=== PATIENT | male | born 1965 | race Two or more races ===

== ENCOUNTER 2017-11-04 19:38 | Emergency (ER) | payer MEDICAID ==
[~2017-11-04] VITALS: Ht 167.6 cm; Wt 74.8 kg
[2017-11-04 20:32] VITALS: BP 139/101
[2017-11-04] MEDS ORDERED: MEPERIDINE HCL (50 MG/ML) 1 ML VIAL IM ONE (21:15)
== END 2017-11-04 22:26 | disposition home or self-care (01) ==
LOC: ER 19:38
DX: S22.32XA Fracture of one rib, left side, initial encounter for closed fracture (principal); W22.8XXA Striking against or struck by other objects, initial encounter; Y93.89 Activity, other specified; Y99.8 Other external cause status; Y92.89 Other specified places as the place of occurrence of the external cause
CPT/HCPCS: 71101; 96372; 99284; J2175

== ENCOUNTER 2023-01-15 14:36 | Emergency (ER) | payer MEDICAID ==
[~2023-01-15] VITALS: Ht 165.1 cm; Wt 66.8 kg
[2023-01-15 16:24] VITALS: BP 133/90; PULSE 86; RESP 14; TEMP 97.9; O2SAT 98
[2023-01-15] MEDS ORDERED: TETANUS-DIPTH-ACEL PERTUSSIS 0.5ML SYR Tdap IM ONE (16:30)
[2023-01-15] MEDS ORDERED: NEOMYCIN-BACITRACIN-POLYM UNITDOSE PKG TOP OINT TOP ONE (16:30)
[2023-01-15] MEDS ORDERED: GABAPENTIN 300 MG CAP PO ONE (16:30)
[2023-01-15 16:56] LABS: Urine Bacteria NONE SEEN /hpf (None Seen); Urine Blood Negative /uL (Negative); Urine Clarity Clear (Clear); Urine Color Yellow (Yellow); Urine Hyaline Cast FEW /lpf (0 - 2); Urine Mucus FEW (None Seen); Urine Protein, UAD TRACE (Negative); Urine Specific Gravity 1.028 (1.001-1.035); Urine WBC 2 /hpf (0 - 3); Urine pH 5.5 (5.0-8.0)
[2023-01-15] MEDS ORDERED: GABA-1250 PO (17:42)
[2023-01-15] MEDS ORDERED: IBUP-1454 PO (17:42)
== END 2023-01-15 17:46 | disposition home or self-care (01) ==
LOC: ER 14:36
DX: S90.822A Blister (nonthermal), left foot, initial encounter (principal); S90.821A Blister (nonthermal), right foot, initial encounter; N23 Unspecified renal colic; X58.XXXA Exposure to other specified factors, initial encounter; Y93.89 Activity, other specified; Y92.89 Other specified places as the place of occurrence of the external cause; Y99.8 Other external cause status
CPT/HCPCS: 81001; 90471; 90715

== ENCOUNTER 2023-03-08 14:10 | Emergency (ER) | payer MEDICAID ==
[~2023-03-08] VITALS: Ht 165.1 cm; Wt 70.4 kg
[~2023-03-08 14:10] MED LIST: GABA-1250 PO; IBUP-1454 PO
[2023-03-08 15:23] LABS: Basophils # (auto) 0 10 ^3/uL (0-0.2); Basophils % (auto) 1.1 % (0.0-2.0); Eosinophils # (auto) 0 10 ^3/uL (0-0.8); Eosinophils % (auto) 0.9 % (0.0-7.0); Hematocrit 42.1 % (41.0-53.0); Hemoglobin 13.9 g/dL (13.5-17.5); Lymphocytes # (auto) 0.3 10 ^3/uL (0.4-5.4); Lymphocytes % (auto) 6.9 % (10.0-50.0); Mean Corpuscular Hgb Conc. 33.1 g/dL (32.0-36.0); Mean Corpuscular Volume 93.7 fL (80.0-100.0); Monocytes # (auto) 0.2 10 ^3/uL (0-1.3); Monocytes % (auto) 5.4 % (0.0-12.0); Neutrophils # (auto) 3.7 10 ^3/uL (1.6-8.6); Neutrophils % (auto) 85.7 % (37.0-80.0); Nucleated Red Blood Cells % 0.2 %; White Blood Cell 4.3 10^3/uL (4.4-10.8)
[2023-03-08 16:16] LABS: Alanine Aminotransferase 52 U/L (7-40); Albumin 4.7 g/dL (3.2-4.8); Alkaline Phosphatase 72 U/L (46-116); Anion Gap 7 (5-15); Aspartate Aminotransferase 68 U/L (13-40); BUN/Creatinine Ratio 19.9 (10.0-20.0); Blood Urea Nitrogen 33 mg/dL (9-23); Calcium 9.6 mg/dL (8.5-10.1); Carbon Dioxide 27 mmol/L (20-30); Chloride 104 mmol/L (98-107); Glucose 119 mg/dL (74-106); Potassium 4.1 mmol/L (3.5-5.1); Sodium 138 mmol/L (136-145)
[2023-03-08 16:17] LABS: Bilirubin, Total 0.9 mg/dL (0.2-1.0); Total Protein 7.4 g/dL (5.7-8.2)
[2023-03-08 16:30] VITALS: PULSE 65; RESP 12; O2SAT 96
[2023-03-08] MEDS ORDERED: SODIUM CHLORIDE 0.9% 1,000 ML IV ONE (17:00)
[2023-03-08 18:49] VITALS: BP 140/94; PULSE 61; RESP 12; O2SAT 98
[2023-03-08 19:08] LABS: Amphetamine Screen, Urine Pos (NEGATIVE); Barbiturate Scree,Urine Neg (NEGATIVE); Benzodiazephine Screen, Urine Neg (NEGATIVE); Cannabinoid Screen, Urine Neg (NEGATIVE); Cocaine Screen, Urine Neg (NEGATIVE); Opiate Scree,Urine Neg (NEGATIVE); Phencyclidine Screen, Urine Neg (NEGATIVE)
[2023-03-08 19:18] LABS: Urine Bacteria NONE SEEN /hpf (None Seen); Urine Blood Negative /uL (Negative); Urine Clarity HAZY (Clear); Urine Color Yellow (Yellow); Urine Hyaline Cast FEW /lpf (0 - 2); Urine Protein, UAD 1+ (Negative); Urine Specific Gravity 1.033 (1.001-1.035); Urine WBC 1 /hpf (0 - 3); Urine pH 5.5 (5.0-8.0)
[2023-03-08] MEDS ORDERED: ZOFR4T PO (20:08)
[2023-03-09 13:41] LABS: Lipase 36 U/L (12-53)
== END 2023-03-08 21:05 | disposition home or self-care (01) ==
LOC: ER 14:10 → EDBD 14:10 → ER 21:05
DX: F15.10 Other stimulant abuse, uncomplicated (principal); R10.9 Unspecified abdominal pain; R11.2 Nausea with vomiting, unspecified; R19.7 Diarrhea, unspecified; I10 Essential (primary) hypertension; E78.5 Hyperlipidemia, unspecified; J45.909 Unspecified asthma, uncomplicated; E03.9 Hypothyroidism, unspecified; Z98.890 Other specified postprocedural states; Z79.899 Other long term (current) drug therapy
CPT/HCPCS: 36415; 71045; 74176; 80053; 80307; 81001; 83605; 83690; 83880; 84484; 85025; 87040; 93005; 96360; 99285; J7030